=== PATIENT | female | born 1965 | race African-American/Black ===

== ENCOUNTER 2017-02-09 17:14 | Observation (INO) | END 2017-02-11 17:40 | disposition home or self-care (01) | DX: R07.9 Chest pain, unspecified (principal); I11.0 Hypertensive heart disease with heart failure; I50.9 Heart failure, unspecified; E78.00 Pure hypercholesterolemia, unspecified; E11.9 Type 2 diabetes mellitus without complications; E78.5 Hyperlipidemia, unspecified; R94.31 Abnormal electrocardiogram [ECG] [EKG]; J45.909 Unspecified asthma, uncomplicated; Z79.82 Long term (current) use of aspirin; Z88.8 Allergy status to other drugs, medicaments and biological substances; Z87.891 Personal history of nicotine dependence; Z82.49 Family history of ischemic heart disease and other diseases of the circulatory system | CPT/HCPCS: 36415; 71010; 78452; 80048; 80061; 82550; 82553; 82962; 83036; 83735; 84100; 84439; 84443; 84484; 85025; 85610; 85730; 93005; 93017; 93306; 96372; 99285; A9500; A9505; G0378; J1644; J1815; J2785 ==